=== PATIENT | female | born 1970 | race Caucasian/White ===

== ENCOUNTER 2024-02-08 10:38 | Emergency (ER) | payer MEDICAID, SELFPAY ==
[2024-02-08 10:39] VITALS: BP 138/66; PULSE 80; RESP 16; TEMP 36.4; O2SAT 97; BMI 28.4
--- NOTE | 2024-02-08 10:43 | EKG12_ITS ---
Test Reason : PALPITATIONS Blood Pressure : / mmHG Vent. Rate : 081 BPM Atrial Rate : 081 BPM P-R Int : 142 ms QRS Dur : 076 ms QT Int : 372 ms P-R-T Axes : 067 030 009 degrees QTc Int : 432 ms Normal sinus rhythm Low voltage QRS Borderline ECG Confirmed by MILES HERNANDEZ, DIVINE ([id number]), scientific publications editor DEXTER FORBES ([id number]) on 02/11/2024 9:59:19 AM Referred By: Confirmed By:DIVINE AQUINO MD
--- NOTE | 2024-02-08 10:43 | RAD_ITS ---
INDICATION: Chest tightness EXAMINATION/TECHNIQUE: X-RAY - XR Chest 2 Views COMPARISON: No relevant prior comparison study available FINDINGS: LINES/DEVICES: None. LUNGS: No consolidation, edema or effusion. No pneumothorax. MEDIASTINUM AND CARDIOVASCULAR STRUCTURES: Cardiac silhouette not enlarged. Central airways and mediastinal contour are unremarkable. BONES AND SOFT TISSUES: Unremarkable. RAD/Chest PA and Lateral IMPRESSION: No radiographic evidence of acute cardiopulmonary disease. Electronically Signed: Pinky William MD at 11:11 EDT ,
--- NOTE | 2024-02-08 10:44 | EDS_ITS ---
HPI History of Present Illness Chief Complaint: Palpitations Detail of Chief Complaint: Slow heart rate and fast heart rate with lightheadedness and chest tightnes Informant: patient and EMS Onset/Context/Timing Onset: Today and Hours Context: Sudden Onset Timing: Continuous Quality: Pressure tightness mid chest with shortness of breath and nausea Location: Anterior mid chest Current Severity: Mild Maximum Severity: Moderate Worsened by: Patient was sitting reading her Bible when symptoms started Relieved by: Nothing Associated Symptoms Associated Symptoms: Lightheadedness, slow heart rate followed by rapid heart rate, nausea and s Narrative Narrative: Patient is a 53-year-old woman. She has history of hypothyroidism. Her TSH has not been checked recently. She has not noted any weight gain or weight loss. She denies intolerance to cold or hot. Patient states she got up. She was sitting reading her Bible. She felt unusual. She checked her pulse and it was noted to be low at 50. She then developed chest tightness with pressure anterior mid chest without radiation associated with mild shortness of breath and nausea. There was no vomiting or diaphoresis. She denies radiation. She states she still has some discomfort. Prehospital EKG was sent and patient had a sinus rhythm in the 80s with no acute ischemic changes noted. This was signed by me prior to patient's arrival. Patient denies abdominal pain or back pain. She denies black or maroon-colored stool. She denies urologic symptoms. Patient has no history of VTE and has no risk factors. She is not on hormonal therapy. She denies leg pain, swelling or discoloration. She states occasionally she will get bumps and this is due to pelvic pathology. This has been going on for some time. Prior similar symptoms: No Recent Illness/Hospitalization: No PFSH PFS Medical History (Updated 02/08/24 @ 14:[address] Catalino Reynolds MD) Palpitations section wound complication Home Medications ?Medication ?Instructions ?Recorded ?Last Taken ?Type levothyroxine 100 mcg tablet 100 mcg PO DAILY #30 tabs 02/08/24 Unknown Rx (Levoxyl) Allergy/AdvReac Type Severity Reaction Status Date / Time orphenadrine (From Norflex) AdvReac Severe seizure Verified 02/08/24 10:50 Social History (Updated 02/08/24 @ 10:[address] Catalino Reynolds MD) household members: children Smoking Status: Current every day smoker tobacco type: cigarettes substance use type: does not use ROS ROS ED Constitutional Constitutional ED: Denies chills, fever(s), subjective or sweats Eyes Eyes: Denies blurry vision, change in vision or diplopia ENT ENT ED: Denies ear pain, rhinorrhea or sore throat Cardiovascular Cardiovascular: Reports chest pain, palpitations and other Details: Squad said upon their arrival heart rate was greater than 120. When EKG was performed rate was 80. They did not bring rhythm strip. ; Denies orthopnea or racing heartbeat Respiratory/Chest Respiratory/Chest: Reports dyspnea; Denies cough, dyspnea on exertion or orthopnea Gastrointestinal Gastrointestinal: Reports nausea; Denies abdominal pain, diarrhea, melena or vomiting Genitourinary Genitourinary ED: Denies dysuria, hematuria or urinary frequency Musculoskeletal Musculoskeletal: Denies back pain or neck pain Neurologic Neurologic: Denies headache(s) or paresthesias Psychiatric Psychiatric: Denies anxiety or depression Endocrine Endocrinology: Denies cold intolerance or heat intolerance Hematologic/Lymphatic Hematologic/Lymphatic: Reports systems reviewed and no addt'l complaints, except as documented EXAM Physical Exam Const Vital Signs: 02/08/24 10:39 02/08/24 12:08 02/08/24 12:31 Temperature 97.6 F L Temperature Source Oral Pulse Rate 80 79 82 Respiratory Rate 16 18 17 Blood Pressure 138/66 H 138/77 H 138/77 H Blood Pressure Mean 90 97 97 Pulse Ox 97 100 99 Oxygen Delivery Method Room Air Room Air Room Air 02/08/24 13:27 Temperature Temperature Source Pulse Rate 75 Respiratory Rate 14 Blood Pressure 131/73 H Blood Pressure Mean 92 Pulse Ox 95 Oxygen Delivery Method Room Air Positive well nourished and well developed General Appearance ED: well developed and NAD; Negative for cyanotic, diaphoretic or pallor HEENT Reports moist mucous membranes HEENT Narrative: Head is atraumatic and normocephalic. Ears normal. Nares patent. Mucosa is moist. Eyes PERRL and EOMs intact bilaterally General Eye ED: Negative for pale conjunctiva or scleral icterus Neck no JVD Resp normal respiratory effort and clear to auscultation bilaterally Cardio regular rate, regular rhythm, S1 normal heart sound, S2 normal heart sound and no murmurs GI normal to inspection, nondistended, normoactive bowel sounds, non-tender, non- distended and no masses; Negative for hepatosplenomegaly Extremity normal to inspection Extremity Narrative: There is no asymmetry, swelling, discoloration, leg vein distention, palpable cords or tenderness along the distribution of the deep venous system. There is bruising noted anterior proximal right and left leg. Neuro oriented x3, CN's II-XII intact bilaterally and no sensory deficits noted Sensorium / Orientation: alert Psych mental status grossly normal Skin no rashes or lesions noted, no wounds and skin turgor normal General Skin Exam: elasticity normal; Negative for jaundice or pallor MDM MDM MDM Narrative Medical decision making narrative: The patient complained of chest discomfort need to rule out cardiac versus noncardiac etiology. EKG prehospital revealed no acute ischemia. Will obtain troponin and 2-hour troponin. Noncardiac causes may represent reflux, peptic ulcer disease, hiatal hernia this would not explain her bradycardia or tachycardia. Will obtain electrolyte panel to assess for hypokalemia and renal function. TSH to assess if patient has hyperthyroidism since her level has not been checked recently nor is her dose of medication been changed recently. CBC to rule out anemia. Clinically she does not appear anemic. Chest x-ray to assess for high hiatal hernia or any noncardiac cause which would include infiltrate doubt pneumothorax. Wells score for DVT is -2. Wells score for PE is less than 3. History & Record Review Additional record(s) reviewed:: Prior ED visit (Only records available are from 2012 for nonspecified abdominal pain.) Lab Data Attestation: I reviewed the patient's lab results. Lab results narrative: CBC is remarkable for neutropenia. This is a new finding compared to prior. TSH is elevated 9.46. Troponin is normal at 3. Labs: Laboratory Results - last 24 hr 02/08/24 02/08/24 10:55 13:29 WBC 4.1 L RBC 4.51 Hgb 13.7 Hct 41.6 MCV 92.2 MCH 30.4 MCHC 32.9 RDW Std Deviation 45.9 H RDW Coeff of Mary Beth 13.4 Plt Count 293 MPV 9.6 Immature Gran % (Auto) 0.200 Neut % (Auto) 50.4 Lymph % (Auto) 37.9 [place] % (Auto) 8.2 Eos % (Auto) 1.9 Baso % (Auto) 1.4 H Absolute Neuts (auto) 2.1 Absolute Lymphs (auto) 1.57 Nucleated RBC % 0 Sodium 139 Potassium 3.6 Chloride 105 Carbon Dioxide 29.0 Anion Gap 5 BUN 11 Creatinine 0.72 Estim Creat Clear Calc 84.12 Est GFR (MDRD) Af Amer 108 Est GFR (MDRD) Non-Af 90 BUN/Creatinine Ratio 15.2 Glucose 114 H Calcium 9.1 Troponin I High Sens 3 4 TSH 9.460 H 2-hour troponin is 4 with a delta of 1. This rules out cardiac etiology. Will refer patient to school janitor on-call. That would be Dr. Dr. Vaughan Radiography Chest X-Ray - ED: 2 View and Read by ED Physician (Independent reviewed interpreted by ut at 05/06/2006 as negative for any acute pathology. Cardiac silhouette size normal. Lung parenchyma normal. [place] normal. [place] structures are unremarkable.) Diagnostic Testing: Clinical Impression(s) from Imaging Studies Chest X-Ray 02/08/24 10:43 IMPRESSION: No radiographic evidence of acute cardiopulmonary disease. Electronically Signed: Pinky William MD at 11:11 EDT , EKG Initial EKG: Attestation: I personally reviewed and interpreted this EKG as follows: Interpretation: Sinus Rhythm (Rate is 81. EKG reveals low voltage otherwise unremarkable. DC interval is under 42 ms. Cures duration 76 ms. QT duration 3 and 72 ms. [place] is normal.) Additional Tests and Interventions Additional Tests or Interventions: Because patient was noted to have tachycardia on the monitor nurse ordered EKG. Repeat EKG reveals sinus rhythm rate 82. There is decreased anterior force. DC was 132 ms. Cures durations 84 ms. QT duration 3 and 54 ms. [place] is normal. The second EKG is unchanged from the first. Treatment and Re-Evaluation :: EKG was obtained when patient was [place] tachycardic. Patient has a sinus tachycardia rate of 121. Since she was recently diagnosed COVID this may represent inappropriate sinus tachycardia Discharge Plan Triage Chief Complaint: Palpitations ED Provider: Catalino Reynolds Dx/Rx/DC Orders Clinical Impression: Paroxysmal sinus tachycardia, Hypothyroidism, Elevated blood-pressure reading without diagnosis of hypertension Instructions: ED About Arrhythmias, ED Hypertension, To Be Confirmed, ED Hypothyroidism Prescriptions: New levothyroxine [Levoxyl] 100 mcg tablet 100 mcg PO DAILY Qty: 30 0RF Primary Care Provider: Juan Dalton Referrals: Karl Vaughan MD [Med Staff - Active Staff] - 1 Week Juan Dalton MD [Primary Care Provider] - Print Language: B[place]ian Disposition Disposition: Home, Self Care
[2024-02-08 11:00] LABS: Absolute Lymphocyte Count 1.57 X10^3/uL (0.83-4.51); Absolute Neutrophil Count 2.1 X10^3/uL (2.0-7.7); Basophil# 0.06 X10^3/uL; Basophil% 1.4 % (0-1); Eosinophil# 0.08 X10^3/uL; Eosinophils% 1.9 % (0-5); Hematocrit 41.6 % (37-47); Hemoglobin 13.7 g/dL (12.0-15.0); Lymphocyte # 1.57 X10^3/ul (0.83-4.51); Lymphocyte % 37.9 % (19-41); Mean Corp Hgb Conc 32.9 g/dL (32-36); Mean Corpuscular Hgb 30.4 pg (27.0-32.0); Mean Corpuscular Volume 92.2 fL (81-99); Mean Platelet Vol. 9.6 fl (6.2-12.0); Monocyte# 0.34 X10^3/uL; Monocyte% 8.2 % (0-10); NRBC Flagged by Analyzer 0 % (0-5); Neutrophil # 2.08 X10^3/uL (2.7-7.7); Neutrophil % 50.4 % (47-70); Platelet Count 293 K/mm3 (150-450); RBC Distribution Width CV 13.4 % (11.6-14.6); RBC Distribution Width SD 45.9 fl (35.1-43.9); Red Blood Count 4.51 M/mm3 (4.2-5.4); White Blood Count 4.1 K/mm3 (4.4-11.0)
[2024-02-08 11:25] LABS: Anion Gap 5 (5-15); BUN 11 mg/dL (7-18); BUN/Creat Ratio 15.2 RATIO (10-20); Calcium,Total 9.1 mg/dL (8.5-10.1); Chloride 105 mmol/L (98-107); Creatinine, Serum 0.72 mg/dL (0.55-1.02); EST Glomerular Filtration Rate 90 mL/min (>60); Est Glom Filt Rate - Afr Amer 108 mL/min (>60); Estimated Creatinine Clearance 84.12 ml/min; Glucose 114 mg/dL (74-106); Potassium 3.6 mmol/L (3.5-5.1); Sodium Level 139 mmol/L (136-145); Troponin-I HS (w/2H Reflex) 3 pg/mL (3.0-54.0)
--- NOTE | 2024-02-08 11:25 | CM.ED ---
[place] [facility]: Date of referral: 02/08/2024 Reason for referral: Other/Anxious Referred by: Social Work Identification emery wheel worker was called into room by patient's son (presumed) as patient was panicking due to medical conditions. Patient was shaking, individual in room praying over patient and on the phone with a support person. emery wheel worker sat with patient to assist with calming/practicing relaxation techniques/breathing strategies which helped. Hospital staff come into the room to get another EKG at which point social work nurse left. emery wheel worker had to leave the area for other assessment and after social work nurse returned, patient had already been discharged. No additional follow up was preformed Candace Hylton FLAT BED OPERATOR, WINDOWS VMWARE ENGINEER.
--- NOTE | 2024-02-08 11:54 | ED.RN ---
pt anxious in room, shaking. encouraged to take slow deep breaths. HR was in 150s, called for EKG.
--- NOTE | 2024-02-08 12:01 | EKG12_ITS ---
Test Reason : REPEAT Blood Pressure : / mmHG Vent. Rate : 082 BPM Atrial Rate : 082 BPM P-R Int : 132 ms QRS Dur : 084 ms QT Int : 354 ms P-R-T Axes : 069 049 -14 degrees QTc Int : 413 ms Normal sinus rhythm Cannot rule out Anterior infarct , age undetermined Abnormal ECG Confirmed by MILES HERNANDEZ, DIVINE ([id number]), editor in chief HEMANTH DAMIAN ([id number]) on 02/11/2024 2:02:45 PM Referred By: FABRICE Confirmed By:DIVINE AQUINO MD
[2024-02-08 12:08] VITALS: BP 138/77; PULSE 79; RESP 18; O2SAT 100
[2024-02-08 12:31] VITALS: BP 138/77; PULSE 82; RESP 17; O2SAT 99
[2024-02-08 12:57] LABS: Reflex Troponin-HS? (from REC) Y
[2024-02-08 13:27] VITALS: BP 131/73; PULSE 75; RESP 14; O2SAT 95
[2024-02-08 14:00] LABS: Troponin-I HS 4 pg/mL (3.0-54.0)
[2024-02-08 14:51] VITALS: BP 126/72; PULSE 60; RESP 14; TEMP 36.6; O2SAT 93
== END 2024-02-08 14:59 | disposition home or self-care (01) ==
PROVIDERS: Emergency Provider Emergency Medicine; PCP Family Medicine; Visit Provider Emergency Medicine
DX: I47.19 Other supraventricular tachycardia (principal); E03.9 Hypothyroidism, unspecified; R03.0 Elevated blood-pressure reading, without diagnosis of hypertension; F17.210 Nicotine dependence, cigarettes, uncomplicated
CPT/HCPCS: 71046; 80048; 84443; 84484; 85025; 93005; 99284; A4216

== ENCOUNTER → 2024-04-08 | Outpatient (CLI) | payer MEDICAID, SELFPAY ==
--- NOTE | 2024-04-08 08:05 | ECHOD_ITS ---
Reason For Study: PALPITATIONS Procedure This was a 2D Doppler, Color Flow transthoracic echocardiogram. Exam performed in department. Left Ventricle Normal size and thickness. The left ventricular ejection fraction is 60 %. No evidence for diastolic dysfunction. Right Ventricle Normal right ventricle. Atria The left and right atria are normal. Mitral Valve Mild (1+) mitral valve insufficiency. Tricuspid Valve Trivial tricuspid valve insufficiency. Unable to estimate RV systolic pressure due to insufficient tricuspid regurgitant envelope. Aortic Valve Trisinus/trileaflet aortic valve. Pulmonic Valve Trivial pulmonic valve insufficiency. Great Vessels Normal sized aortic root. Pericardium/Pleural No pericardial effusion. MMode/2D Measurements & Calculations LVIDd: 4.4 cm IVSd: 0.88 cm Ao root diam: 3.3 cm LVIDs: 3.0 cm LVPWd: 0.85 cm RVDd: 2.3 cm FS: 33.4 % LAV(MOD-bp): 27.5 ml LVAd ap4: 22.3 cm2 SV(MOD-sp4): 35.3 ml LAV(MOD-bp) Indexed: 16.3 ml/m2 LVLd ap4: 7.1 cm SI(MOD-sp4): 20.9 ml/m2 LAV(MOD-sp2): 25.2 ml EDV(MOD-sp4): 58.1 ml LAV(MOD-sp4): 25.9 ml EDV(sp4-el): 58.9 ml LVAs ap4: 13.0 cm2 LVLs ap4: 6.2 cm ESV(MOD-sp4): 22.8 ml ESV(sp4-el): 23.0 ml EF(MOD-sp4): 60.7 % EF(sp4-el): 60.9 % SV(sp4-el): 35.9 ml LA A4 area: 12.7 cm2 LA dimension(2D): 3.0 cm RA A4 area: 11.7 cm2 TAPSE: 1.9 cm Time Measurements MV dec time: 0.18 sec Doppler Measurements & Calculations MV E max edson: 46.7 cm/sec Lat Peak E' Edson: 9.8 cm/sec Med Peak E' Edson: 12.3 cm/sec MV A max edson: 65.9 cm/sec E/E' lat: 4.8 E/E' med: 3.8 MV E/A: 0.71 Ao V2 max: 114.1 cm/sec LV V1 max: 92.4 cm/sec PA V2 max: 71.6 cm/sec Ao max P.2 mmHg LV V1 max P.4 mmHg ECHO/Echo Complete Interpretation Summary The left ventricular ejection fraction is 60 %. No evidence for diastolic dysfunction. Mild (1+) mitral valve insufficiency. Ordering Physician: Clyde Peralta Referring Physician: MIGNON MACIAS Performed By: Valeria Nagy RDCS
== END | disposition home or self-care (01) ==
LOC: CVS 08:05
PROVIDERS: PCP Family Medicine; Referring Provider Internal Medicine Cardiovascular Disease; Visit Provider Internal Medicine Cardiovascular Disease
DX: R94.31 Abnormal electrocardiogram [ECG] [EKG] (principal); R00.2 Palpitations; I47.19 Other supraventricular tachycardia
CPT/HCPCS: 93306

== ENCOUNTER → 2024-05-14 | Outpatient (CLI) | payer MEDICAID, SELFPAY ==
[2024-05-14 16:21] LABS: ALB/GLOB Ratio 1.1 RATIO (0.9-2.4); AST(SGOT) 16 U/L (15-37); Alanine Aminotransfer ALT/SGPT 33 U/L (13-56); Albumin, Serum 3.8 g/dL (3.2-5.0); Alkaline Phosphatase 96 U/L (45-117); Anion Gap 5 (5-15); BUN 15 mg/dL (7-18); BUN/Creat Ratio 19.1 RATIO (10-20); Calcium,Total 9.5 mg/dL (8.5-10.1); Chloride 103 mmol/L (98-107); Cholesterol 189 mg/dL (200); Creatinine, Serum 0.79 mg/dL (0.55-1.02); EST Glomerular Filtration Rate 81 mL/min (>60); Est Glom Filt Rate - Afr Amer 98 mL/min (>60); Globulin 3.5 g/dL (2.2-4.2); Glucose 106 mg/dL (74-106); High Density Lipoprotein 88 mg/dL; Magnesium 2.4 mg/dL (1.6-2.6); Potassium 3.9 mmol/L (3.5-5.1); Protein, Total 7.3 g/dL (6.4-8.2); Sodium Level 137 mmol/L (136-145); Triglycerides 99 mg/dL; Very Low Density Lipoprotein 20 mg/dL (5-40)
== END | disposition home or self-care (01) ==
LOC: LAB 14:33
PROVIDERS: PCP Family Medicine; Referring Provider Internal Medicine Cardiovascular Disease; Visit Provider Internal Medicine Cardiovascular Disease
DX: R00.2 Palpitations (principal); I47.19 Other supraventricular tachycardia; R94.31 Abnormal electrocardiogram [ECG] [EKG]
CPT/HCPCS: 36415; 80053; 80061; 83735